=== PATIENT | female | born 1975 | race Caucasian/White ===

== ENCOUNTER → 2018-08-05 15:22 | Outpatient (CLI) | payer MEDICAID | END | disposition home or self-care (01) | LOC: D.MRI 15:22 | DX: M25.511 Pain in right shoulder (principal) ==

== ENCOUNTER 2020-11-04 09:17 | Emergency (ER) | payer SELFPAY ==
[~2020-11-04] VITALS: Ht 147.3 cm; Wt 86.4 kg
[2020-11-04 09:24] VITALS: BP 167/90; Ht 147.3 cm; Wt 86.4 kg
[2020-11-04] MEDS ORDERED: ACETAMINOPHEN500 M1 PO (10:17)
[2020-11-04] MEDS ORDERED: CYCLOBENZAPRINE5 MG PO (10:17)
[2020-11-04] MEDS ORDERED: IBUPROFEN800 MG PO (10:17)
== END 2020-11-04 10:51 | disposition home or self-care (01) ==
LOC: D.ER 09:17
DX: M25.571 Pain in right ankle and joints of right foot (principal); S93.401A Sprain of unspecified ligament of right ankle, initial encounter; M79.10 Myalgia, unspecified site; X50.1XXA Overexertion from prolonged static or awkward postures, initial encounter; Y93.9 Activity, unspecified; Y92.9 Unspecified place or not applicable